=== PATIENT | male | born 1995 | race African-American/Black ===

== ENCOUNTER 2020-09-11 20:15 | Emergency (ER) | payer SELFPAY ==
[2020-09-11] MEDS ORDERED: Clindamycin HCl 150 MG Cap PO ONE (20:53)
--- NOTE | 2020-09-11 20:59 | EDM.PDOC ---
ED HPI GENERAL MEDICAL PROBLEM - General Chief Complaint: General Stated Complaint: SWOLLEN FACE Time Seen by Provider: 09/11/20 20:40 - History of Present Illness INITIAL COMMENTS - FREE TEXT/NARRATIVE: History of present illness: [] Has a toothache and swelling of the face. The patient has chronic recurring problems with his molars on the upper left side. He cannot afford a dentist at this time and is new to this area. The patient does not have diabetes and does not smoke. He does not have any systemic illness. He does not have any systemic signs of infection. He does not have change in appetite fever cough weakness. The patient does have swelling in the left side of the face and pain in the upper molars on the left side and the maxillary area. The patient symptoms have come up over the last 2days is an acute infectious process affecting teeth that are chronically sore and sensitive. Review of systems: As per history of present illness and below otherwise all systems reviewed and negative. Past medical history: As per history of present illness and as reviewed below otherwise noncontributory. Surgical history: As per history of present illness and as reviewed below otherwise noncontributory. Social history: No reported history of drug or alcohol abuse. Family history: As per history of present illness and as reviewed below otherwise noncontributory. Physical exam: Constitutional - well developed, well-nourished and in no acute distress HEENT -teeth #15 and 16 are carious and the gingiva surrounding them are inflamed. There is swelling of the tissues of the left side of the zygomatic area and proximal mandible area. No trismus the voice is normal and he manages his own secretions. Adenopathy in the neck. Neck is supple. Normocephalic, no evidence of trauma - external nose and mouth normal - no mass in neck and no JVD - mucosae moist EYES - full EOM, PERRL, no icterus - no evidence of inflammation, injection, or drainage Respiratory - no respiratory distress, equal bilateral expansion Cardiovascular - Regular Rhythm with S1 and S2 appreciated and no murmur, gallop or rub. GI - abdomen soft without distension or organomegaly - normal bowel sounds - no guard or rebound Musculoskeletal no gross deformity of long bones or joints - no tenderness, swelling or edema Neurologic - Alert and oriented times four - CN II-XII grossly intact - motor sensory and coordination symmetrically normal Psychiatric - appropriate mood and affect with normal thought content Hematologic - No petechiae or purpura - mucosa appropriate color and sclera not pale - normal nail bed color and refill Integument - no rash or evidence of trauma - normal turgor Diagnostics: [] Therapeutics: [] Impression: [] Plan: [] Definitive disposition and diagnosis as appropriate pending reevaluation and review of above. Left Upper Tooth/Teeth Pain Score (Numeric/FACES): 2 - Related Data Allergies Allergy/AdvReac Type Severity Reaction Status Date / Time No Known Allergies Allergy Verified 09/11/20 20:41 Home Meds: Home Meds Acetaminophen/Codeine [Tylenol with Codeine No.3 300MG/30MG] 2 tab PO Q4H PRN #20 tab 09/11/20 [Rx] Clindamycin HCl 300 mg PO TID #21 capsule 09/11/20 [Rx] Past Medical History - Past Health History Medical/Surgical History: Denies Medical/Surgical History Social & Family History - Tobacco Use Tobacco Use Status *Q: Current Every Day Tobacco User Years of Tobacco use: 8 Packs/Tins Daily: 1 - Caffeine Use Caffeine Use: Reports: Coffee, Energy Drinks - Recreational Drug Use Recreational Drug Use: No ED ROS GENERAL - Review of Systems Review Of Systems: Comprehensive ROS is negative, except as noted in HPI. ED EXAM, GENERAL - Physical Exam Exam: See Below Free Text/Narrative:: My physical exam is in the HPI Course - Vital Signs Last Recorded V/S: Last Vital Signs Temp 36.9 C 09/11/20 20:37 Pulse 82 09/11/20 20:37 Resp 17 09/11/20 20:37 BP 126/82 09/11/20 20:37 Pulse Ox 96 09/11/20 20:37 - Orders/Labs/Meds Meds: Medications Discontinued Medications Generic Name Dose Route Start Last Admin Trade Name Freq PRN Reason Stop Dose Admin Clindamycin HCl 300 mg 09/11/20 20:53 Cleocin PO 09/11/20 20:54 ONETIME ONE Departure - Departure Time of Disposition: 20:58 Disposition: Home, Self-Care 01 Condition: Good Clinical Impression: Dental abscess, Periodontal disease, Caries - Discharge Information Prescriptions: Clindamycin HCl 300 mg PO TID #21 capsule Acetaminophen/Codeine [Tylenol with Codeine No.3 300MG/30MG] 2 tab PO Q4H PRN #20 tab PRN Reason: Pain (Moderate 4-6) Instructions: Dental Abscess, [id number] Referrals: PCP,None [Primary Care Provider] - Additional Instructions: [facility] [address] [place] [address] [facility] [address] [place] [id number] The following information is given to patients seen in the emergency department who are being discharged to home. This information is to outline your options for follow-up care. We provide all patients seen in our emergency department with a follow-up referral. The need for follow-up, as well as the timing and circumstances, are variable depending upon the specifics of your emergency department visit. If you don't have a primary care physician on staff, we will provide you with a referral. We always advise you to contact your personal physician following an emergency department visit to inform them of the circumstance of the visit and for follow-up with them and/or the need for any referrals to a consulting specialist. The emergency department will also refer you to a specialist when appropriate. This referral assures that you have the opportunity for follow-up care with a specialist. All of these measure are taken in an effort to provide you with optimal care, which includes your follow-up. Under all circumstances we always encourage you to contact your private physician who remains a resource for coordinating your care. When calling for follow-up care, please make the office aware that this follow-up is from your recent emergency room visit. If for any reason you are refused follow-up, please contact the [facility] Emergency Department at and asked to speak to the emergency department charge nurse. Sepsis Event Note (ED) - Evaluation Sepsis Screening Result: No Definite Risk - Focused Exam Vital Signs: Vital Signs Temp Pulse Resp BP Pulse Ox 09/11/20 20:37 36.9 C 82 17 126/82 96
== END 2020-09-11 21:09 | disposition home or self-care (01) ==
LOC: MW.ED 20:15
DX: K05.219 Aggressive periodontitis, localized, unspecified severity (principal); K02.9 Dental caries, unspecified; F17.210 Nicotine dependence, cigarettes, uncomplicated
CPT/HCPCS: 99283; A9270

== ENCOUNTER 2021-06-13 11:08 | Emergency (ER) | payer SELFPAY ==
[2021-06-13] MEDS ORDERED: Ketorolac 60 MG/2 ML SDV IM ONE (13:00)
--- NOTE | 2021-06-13 13:02 | EDM.PDOC ---
<Amara Camargo - Last Filed: 06/18/21 15:32> ED HPI GENERAL MEDICAL PROBLEM - General Chief Complaint: Upper Extremity Injury/Pain Stated Complaint: RIGHT HAND INJURY Time Seen by Provider: 06/13/21 12:50 Source of Information: Reports: Patient History Limitations: Reports: No Limitations - History of Present Illness INITIAL COMMENTS - FREE TEXT/NARRATIVE: HISTORY AND PHYSICAL: History of present illness: The patient is a 25 year old male who presents to the emergency department for complaints of bilateral hand pain and swelling after hitting a wall due to anger and frustration. The patient denies altercation with anyone. The patient did not take any medication or apply ice for the pain or swelling. Patient denies any fever, chills, headache, change in vision, syncope or near syncope. Denies any chest pain, back pain, shortness of breath or cough. Denies any abdominal pain, nausea, vomiting, diarrhea, constipation or dysuria. Has not noted any blood in urine or stool. Patient has been eating and drinking appropriately. Review of systems: As per history of present illness and below otherwise all systems reviewed and negative. Past medical history: As per history of present illness and as reviewed below otherwise noncontributory. Surgical history: As per history of present illness and as reviewed below otherwise noncontrib utory. Social history: See social history for further information Family history: As per history of present illness and as reviewed below otherwise noncontributory. Physical exam: General: Well developed and well nourished. Alert and orientated x 3. Nontoxic in appearance and in no acute distress. Vital signs are stable and have been reviewed by me. Nursing notes were reviewed. HEENT: Atraumatic, normocephalic, pupils equal and reactive bilaterally, negative for conjunctival pallor or scleral icterus, mucous membranes moist, TMs normal bilaterally, throat clear, neck supple, nontender, trachea midline. No drooling or trismus noted. No meningeal signs. No hot potato voice noted. Lungs: Clear to auscultation bilaterally. No wheezes, rales, or rhonchi. Chest nontender. Normal work of breathing, no accessory muscles used. Heart: S1S2, regular rate and rhythm without overt murmur, gallops, or rubs. No JVD. No peripheral edema Abdomen: Soft, nondistended, nontender. Normoactive bowel sounds. Negative for masses or costovertebral tenderness. Skin: Minor abrasion noted on 2nd, 3rd, & 4th, warm, dry. No lesions or rashes noted. Hematologic: No petechiae or purpra. Mucosa appropriate color and normal nail bed color and refill. Extremities: Right hand with increase swelling. Bilateral hand negative Nontender in the anatomical snuff box. Moves all bilateral fingers but with pain. Bilaterally Neurological intact. No evidence of tendon involvement. Moves all other extremities per self without difficulty or deficits, negative for cords or calf pain. Neurovascular unremarkable. Neuro: Awake, alert, oriented. Cranial nerves II through XII unremarkable. Cerebellum unremarkable. Motor and sensory unremarkable throughout. Exam nonfocal. Psychiatric: Mood and affect are appropriate. Normal thought process. Answering questions appropriately. Notes: *This patient was seen and evaluated during the 2019 SARS-CoV-2 novel coronavirus pandemic period. Community viral transmission is ongoing at time of this encounter and the emergency department is operating under pandemic response procedures. As stated above the patient hit a wall with both of his hands causing swelling and pain. I have ordered bilateral hand x-rays and will treat his discomfort with Toradol 60mg IM. The patient's hand x-ray impression #1. Acute mildly displaced intra-articular fracture of the base of the right fourth metacarpal. 2. Acute mildly displaced intra- articular fracture of the right hamate at the fifth carpometacarpal joint. 3. Acute angulated fracture of the neck of the fifth left metacarpal. I have ordered bilateral splint placement and will have the patient follow up with the hand surgeon in [place]. The patient is agreeable with the discharge plan. I will give the patient a not for work. Post splint application, both hands are Neurovascularly intact. Due to emergent condition of another patient the patient was released prior to my personal discharge instructions. I have verbalized to the patient my instructions and he did verbalize understanding. The patient was given general discharge instructions. I have talked with the patient about today's findings, in addition to providing specific details for plan of care. Reassessment at the time of disposition demonstrates that the patient is in no acute distress. The patient is stable for discharge, counseling was provided and we discussed in great detail signs and symptoms that would prompt them to return to the Emergency Department. Medication, follow up and supportive care measures were reviewed and discussed. Voices understanding and is agreeable to plan of care. Denies any further questions or concerns at this time. Diagnostics: Bilateral hand x-ray. Therapeutics:Toradol 60mg Prescription: [place] 1-2 tabs by mouth every 6-8 hours #16 Impression: Bilateral hand fractures Plan: Patient left prior to receiving my discharge plan. 1. You were evaluated today on an emergent basis. Your complaints of bilateral hand pain was evaluated with a bilateral hand x-ray. The hand x-ray impression #1. Acute mildly displaced intra-articular fracture of the base of the right fourth metacarpal. 2. Acute mildly displaced intra- articular fracture of the right hamate at the fifth carpometacarpal joint. 3. Acute angulated fracture of the neck of the fifth left metacarpal. Application of a splint on each hand with instructions to follow up with [place] hand surgeon were given to You. If you notice any decrease feeling, or discoloration of your fingers please return to the ED. You will be given a note for work. You were given [place] 1-2 tabs by mouth every 6-8 hours for pain. 2. You can alternate Tylenol and ibuprofen as needed for pain and fever management. 3. We encourage you to follow up with your primary care provider and/or recommended specialist in the next few days for re-evaluation and further care/management. 4. If your symptoms should worsen, new symptoms develop or any of the signs and symptoms we discussed should arise please return to the emergency room or call 911 (if needed). Definitive disposition and diagnosis as appropriate pending reevaluation and review of above. Bilateral Hand Pain Score (Numeric/FACES): 10 - Related Data Allergies Allergy/AdvReac Type Severity Reaction Status Date / Time No Known Allergies Allergy Verified 09/11/20 20:41 Home Meds: Home Meds . [No Known Home Meds] 06/13/21 [History] Past Medical History - Past Health History Medical/Surgical History: Denies Medical/Surgical History Social & Family History - Caffeine Use Caffeine Use: Reports: Coffee, Energy Drinks Review of Systems - Review of Systems Review Of Systems: Comprehensive ROS is negative, except as noted in HPI. ED EXAM, GENERAL - Physical Exam Exam: See Below (See dictation) Departure - Departure Time of Disposition: 14:30 Disposition: Home, Self-Care 01 Clinical Impression: Fracture, metacarpal Qualifiers: Encounter type: initial encounter Metacarpal bone: fifth Fracture type: closed Metacarpal location: base Fracture alignment: displaced Laterality: right Qualified Code(s): S62.316A - Displaced fracture of base of fifth metacarpal bone, right hand, initial encounter for closed fracture Closed hamate fracture Qualifiers: Encounter type: initial encounter Hamate bone location: body Fracture alignment: displaced Laterality: right Qualified Code(s): S62.141A - Displaced fracture of body of hamate [unciform] bone, right wrist, initial encounter for closed fracture Hand fracture, left Qualifiers: Encounter type: initial encounter Fracture type: closed Qualified Code(s): S62.92XA - Unspecified fracture of left wrist and hand, initial encounter for closed fracture - Discharge Information *PRESCRIPTION DRUG MONITORING PROGRAM REVIEWED*: Not Applicable *COPY OF PRESCRIPTION DRUG MONITORING REPORT IN PATIENT CHRISTOPH: Not Applicable Instructions: Cast or Splint Care, Adult, [id number], Metacarpal Fracture, [id number] Referrals: PCP,None [Primary Care Provider] - Forms: ED Department Discharge Additional Instructions: [facility] [address] [place] [address] Orthopedic Surgery [place] [phone] [place] [address] [address]st Floor The following information is given to patients seen in the emergency department who are being discharged to home. This information is to outline your options for follow-up care. We provide all patients seen in our emergency department with a follow-up referral. The need for follow-up, as well as the timing and circumstances, are variable depending upon the specifics of your emergency department visit. If you don't have a primary care physician on staff, we will provide you with a referral. We always advise you to contact your personal physician following an emergency department visit to inform them of the circumstance of the visit and for follow-up with them and/or the need for any referrals to a consulting specialist. The emergency department will also refer you to a specialist when appropriate. This referral assures that you have the opportunity for follow-up care with a specialist. All of these measure are taken in an effort to provide you with optimal care, which includes your follow-up. Under all circumstances we always encourage you to contact your private physician who remains a resource for coordinating your care. When calling for follow-up care, please make the office aware that this follow-up is from your recent emergency room visit. If for any reason you are refused follow-up, please contact the [facility] Emergency Department at and asked to speak to the emergency department charge nurse. [facility] [address] [place] [address] [id number] [address] [address] <Meet Medel - Last Filed: 06/24/21 20:20> Course - Vital Signs Last Recorded V/S: Last Vital Signs Temp 98.7 F 06/13/21 13:08 Pulse 73 06/13/21 14:39 Resp 97 H 06/13/21 14:39 BP 141/98 H 06/13/21 14:39 Pulse Ox 97 06/13/21 13:08 - Orders/Labs/Meds Meds: Medications Discontinued Medications Generic Name Dose Route Start Last Admin Trade Name Freq PRN Reason Stop Dose Admin Hydrocodone Bitart/Acetaminophen 2 tab 06/13/21 14:59 06/13/21 15:02 Acetaminophen/Hydrocodone 325-5 Mg Tab PO 06/13/21 15:00 2 tab ONETIME ONE Administration Ketorolac Tromethamine 60 mg 06/13/21 13:00 06/13/21 13:53 Ketorolac 60 Mg/2 Ml Sdv IM 06/13/21 13:01 60 mg ONETIME ONE Administration - Re-Assessments/Exams Free Text/Narrative Re-Assessment/Exam: 06/24/21 20:20 I was not involved in this pt's care.
[2021-06-13] MEDS ORDERED: Acetaminophen/HYDROcodone 325-5 MG Tab PO ONE (14:59)
--- NOTE | 2021-06-13 15:15 | CR ---
HISTORY: Hand pain and swelling. Punched a wall. TECHNIQUE: Three views of each hand. COMPARISON: None. FINDINGS: Right hand: Acute mildly displaced intra-articular fracture of the base of the 4th metacarpal. Acute mildly displaced intra-articular fracture of the ulnar aspect of the hamate at the 5th carpometacarpal joint. Healed fracture deformity of the distal 5th metacarpal. Joint spaces are otherwise maintained. Left: Volarly angulated acute fracture of the neck of the 5th metacarpal. Bones are otherwise intact. Joint spaces are maintained. IMPRESSION: 1. Acute mildly displaced intra-articular fracture of the base of the right 4th metacarpal. 2. Acute mildly displaced intra-articular fracture of the right hamate at the 5th carpometacarpal joint. 3. Acute angulated fracture of the neck of the left 5th metacarpal. Dictated by Elmer Valiente MD @ 06/13/2021 3:14:[address] Elmer Valiente @ Jun 13 2021 3:14PM
== END 2021-06-13 16:38 | disposition home or self-care (01) ==
LOC: MW.ED 11:08
DX: S62.316A Displaced fracture of base of fifth metacarpal bone, right hand, initial encounter for closed fracture (principal); S62.314A Displaced fracture of base of fourth metacarpal bone, right hand, initial encounter for closed fracture; S62.141A Displaced fracture of body of hamate [unciform] bone, right wrist, initial encounter for closed fracture; W22.09XA Striking against other stationary object, initial encounter
CPT/HCPCS: 29125; 73130; 96372; 99283; A9270; J1885

== ENCOUNTER 2021-12-13 12:18 | Emergency (ER) | payer SELFPAY | END 2021-12-13 15:37 | disposition left against medical advice (07) | LOC: MW.ED 12:18 | DX: Z53.21 Procedure and treatment not carried out due to patient leaving prior to being seen by health care provider (principal) ==